=== PATIENT | female | born 1955 | race Caucasian/White ===

== ENCOUNTER → 2016-04-19 | Outpatient (CLI) | payer OTHER ==
--- NOTE | 2016-04-19 10:22 | MA ---
Digital Diagnostic Right Breast Mammogram With Tomosynthesis Clinical Indications: Six- month follow up of probable benign right breast asymmetry. Comparison: Mammograms through March 01, 2007. Technique: Standard cephalocaudal projection is obtained. Digital breast tomosynthesis was performed in the MLO projection with reconstruction at 1.0 mm slice thickness and composite MLO views reconstru cted. This examination is processed by the [employer] computer-aided detection system. Breast density: Type C: The breast tissue is heterogeneously dense, which may obscure small masses. Findings: The previously noted asymmetry is not visible on today's study, suggesting it represented o verlapping fibroglandular tissue. No suspicious masses or calcifications are identified. Heterogeneou sly dense breast parenchyma reduces sensitivity for noncalcified masses. Impression: BI-RADS 2: Benign Findings Recommendation: Screening mammograms in September 2016. Findings and recommendations were given to the patient at the time of the study. [facility] will send a result letter to the patient. Negative mammography should not preclude additional workup of a clinically suspicious finding. The patient's information is entered into a reminder system with a target due date for her next mammo gram.
== END ==
LOC: FIMAGING 09:24
PROVIDERS: ATTEND Internal Medicine
DX: Z12.39 Encounter for other screening for malignant neoplasm of breast (principal); R92.8 Other abnormal and inconclusive findings on diagnostic imaging of breast
CPT/HCPCS: G0206; G0279

== ENCOUNTER → 2016-11-15 | Outpatient (CLI) | payer OTHER | LOC: FIMAGING 08:06 | PROVIDERS: ATTEND Internal Medicine | DX: Z12.31 Encounter for screening mammogram for malignant neoplasm of breast (principal) | CPT/HCPCS: G0202 ==

== ENCOUNTER → 2017-11-23 | Outpatient (CLI) | payer OTHER | DX: Z12.31 Encounter for screening mammogram for malignant neoplasm of breast (principal) ==

== ENCOUNTER 2017-12-07 14:40 | Emergency (ER) | payer OTHER ==
--- NOTE | 2017-12-07 15:52 | EDPHY ---
General Time Seen by Provider: 12/07/17 15:45 Narrative: CHIEF COMPLAINT: Right finger injury HISTORY OF PRESENT ILLNESS: Patient presents with complains of injury to the right finger last night while trying to take her paddle board off her car. She states that she was removing her paddle board from the top her car when she bent her finger awkwardly. This involves the right middle finger only. It was minimally painful last night. This morning it is more painful and swollen. She reports full use of the finger but painful when doing so. No numbness, tingling or weakness. No laceration or puncture. No injury to the ipsilateral hand, wrist or elbow. Minimal pain at rest. No other associated complaints or modifying factors DOMINANT EXTREMITY: Right-hand dominant ESTABLISHED ORTHOPEDIST: None REVIEW OF SYSTEMS: Ten systems reviewed and are negative unless otherwise noted in the HPI PAST MEDICAL HISTORY: Dyslipidemia, hypertension, depression PAST SURGICAL HISTORY: No recent surgeries SOCIAL HISTORY: Nonsmoker FAMILY HISTORY: Noncontributory EXAMINATION: General Appearance: Alert, no distress Cardiovascular: Symmetric radial pulses 2+. There is brisk cap refill in the fingers of the right hand. Neurological: A&O, 2 point sensory symmetric, interossei strength symmetric Skin: Warm and dry, no rash. No laceration or puncture. No cyanosis or pallor. Extremities: Mild tenderness of the right middle finger involving the PIP joint. There is mild edema. Full range of motion including superficialis and profundus flexors. No evidence of tenosynovitis. Compartments are soft in the right upper extremity. Psychiatric: Mood and affect normal DIFFERENTIAL DIAGNOSES: Including but not limited to sprain, strain, dislocation, subluxation, fracture MDM: 3:45 p.m. Acute injury to the right middle finger last night with swelling and pain over the proximal interphalangeal joint and at the base of the right middle finger. There is no pain anywhere other than middle finger. Her exam does reveal some tenderness and swelling over the PIP joint. There is no evidence of septic joint, tenosynovitis, dislocation, laceration or puncture. X-ray as read by me , without radiologist, reveals no bony abnormalities other than chronic changes. I discussed janet-taped with [place] finger splint. I discussed hand referral. We discussed ice, elevation anti-inflammatories. We discussed ED precautions. She is comfortable this plan. Discharged home stable condition. SUPERVISION: This patient was independently evaluated without direct involvement of or examination by the attending physician. - History Smoking Status: Never smoked - Objective Vital Signs: Initial Vital Signs Temperature (C) 97.9 F 12/07/17 14:42 Heart Rate 89 12/07/17 14:42 Respiratory Rate 18 12/07/17 14:42 Blood Pressure 152/109 H 12/07/17 14:42 O2 Sat (%) 93 12/07/17 14:42 O2 Delivery Mode Room Air Allergies/Adverse Reactions: NSAIDS (Non-Steroidal Anti-Inflamma [Nsaids] Allergy (Intermediate, Verified 11/16 14:41) WHOLE BODY RASH, MOUTH RASH Home Medications: Medication Instructions Recorded Calcium Carb W/Vit D [Calcium Carb 1,000 mg PO HS 10/16/12 W/Vit D 500/200 (OTC)] Escitalopram Oxalate [Lexapro 10 10 mg PO DAILY 10/16/12 MG (RX)] Multivitamins [Tab-A-Pradip] 1 each PO HS 10/16/12 [place]-3 Fatty Acids [Fish Oil 1000 2,000 mg PO BID 10/16/12 mg (OTC)] Zolpidem Tartrate [Ambien 10 mg] 10 mg PO HS 10/16/12 *Pharmacy Completed 10/29/12 10/29/12 Aspirin EC [Aspirin EC 81 mg (OTC)] 81 mg PO HS 10/29/12 Cyanocobalamin [Vitamin B12 1000 1,000 mcg PO BID 10/29/12 MCG (OTC)] Reconciled 11-14-12 11/14/12 Atorvastatin Calcium 12/07/17 [id number] 12/07/17 Departure - Departure Disposition: Home, Routine, Self-Care Clinical Impression: Sprain of right middle finger Qualifiers: Encounter type: initial encounter Sprain of finger site: interphalangeal joint Qualified Code(s): S63.632A - Sprain of interphalangeal joint of right middle finger, initial encounter Condition: Good Instructions: Finger Sprain (ED) Additional Instructions: 1. Finger splint as provided until seen by hand surgeon unless 100% pain free 2. Rest, ice and elevation often 3. Ibuprofen [id number], 400 mg every 6-8 hours as needed for pain 4. Contact hand surgeon for definitive care 5. ED precautions for any worsening pain, redness, warmth, difficulty straightening bending the finger Referrals: Nelli Vaz MD [Primary Care Provider] - As per Instructions Emil Randolph MD [Medical Doctor] - As per Instructions
[2017-12-07 15:59] VITALS: BP 125/84
== END 2017-12-07 15:58 | disposition home or self-care (01) ==
DX: S63.632A Sprain of interphalangeal joint of right middle finger, initial encounter (principal); X50.0XXA Overexertion from strenuous movement or load, initial encounter; Y92.810 Car as the place of occurrence of the external cause; Y99.8 Other external cause status
CPT/HCPCS: L3925

== ENCOUNTER 2018-05-28 08:52 | Day surgery (SDC) | payer OTHER ==
[2018-05-28] MEDS ORDERED: FAMOTIDINE 20 MG TAB PO ONE (08:59)
[2018-05-28] MEDS ORDERED: diphenhydrAMINE 25 MG CAP PO ONE ×2 (08:59→09:10)
[2018-05-28] MEDS ORDERED: DIAZEPAM 5 MG TAB PO ONE (08:59)
[2018-05-28] MEDS ORDERED: ASPIRIN EC 325 MG TAB PO ONE ×2 (08:59→09:10)
[2018-05-28] MEDS ORDERED: NS 1,000 ML IV ONE (08:59)
[2018-05-28] MEDS ORDERED: FAMOTIDINE 20 MG TAB ONE (09:10)
[2018-05-28] MEDS ORDERED: DIAZEPAM 5 MG TAB ONE (09:10)
[2018-05-28 09:28] LABS: PLATELET COUNT 279 10^3/uL (150-400)
[2018-05-28 09:45] LABS: INR 0.87 (0.83-1.16); PROTIME(PATIENT) 12.1 SEC (12.0-15.0)
--- NOTE | 2018-05-28 11:35 | PDPROPOC ---
Sedation Plan of Care Sedation Plan of Care: vital signs stable, mental status noted, patient educated of risks, benefits, alternatives, patient can tolerate sedation ASA Classification: ASA 2 Planned drugs: fentanyl, midazolam Mallampati Score: Class 2 Mallampati Reference Image: Patient passed 3-3-2 rule?: Yes
--- NOTE | 2018-05-28 11:36 | PDHPUP ---
History & Physical Update H&P update statement: This history and physical update is based on an assessment of the patient which was completed after admission or registration (within 24 hours), but prior to the surgery/procedure. 62 F with new onset of exertional symptoms, abnormal ETT and multiple CAD risk factors who presents for [facility]. Risks and benefits discussed. No contraindication to DAPT. H&P update: H&P reviewed & patient examined, no change in patient's condition since H&P completed
[2018-05-28] MEDS ORDERED: MIDAZOLAM 2 MG/2 ML VIAL ONE (12:41)
[2018-05-28] MEDS ORDERED: LIDOCAINE 1% 300 MG/30 ML SDV ONE (12:41)
[2018-05-28] MEDS ORDERED: fentaNYL 100 MCG/2 ML INJ ONE (12:41)
[2018-05-28] MEDS ORDERED: IOPAMIDOL (ISOVUE-370) 150 ML BTL IV ONE (12:42)
[2018-05-28] MEDS ORDERED: NITROGLYCERIN 0.4 MG BTL SL PRN (13:48)
[2018-05-28] MEDS ORDERED: ATROPINE SULFATE 1 MG/10 ML SYR IVP PRN (13:48)
[2018-05-28] MEDS ORDERED: OXYCODONE/APAP 5/325 TAB PO PRN (13:48)
[2018-05-28] MEDS ORDERED: HYDROCODONE/APAP 5/325 TAB PO PRN (13:48)
[2018-05-28] MEDS ORDERED: ONDANSETRON 4 MG/2 ML VIAL IVP PRN (13:48)
--- NOTE | 2018-05-28 13:48 | PDDXCAT ---
Diagnostic Cath Note - . Date: 05/28/18 Mounter Clarinets: Keena Indication: other (New onset exertional angina. Abnormal stress test, moderate risk.) - Procedure Access: right groin Procedure: left heart catheterization, coronary angiography, left ventriculogram - Materials Left Heart Cath size: 6F Left Heart Cath materials: standard multipack (JL4, JR4, pigtail) - Findings-Left Heart Catheterization LM: Normal and bifurcates into the LAD and left circumflex. LAD: Lad is a large vessel reaching the apex. There are 2 principal diagonals. The LAD and its branches are free of coronary disease. LCX: The left circumflex is normal and has 2 obtuse marginals. The 1st is large with a sub branch. There is no significant disease in the LCx or its branches RCA: Dominant vessel. No coronary disease. There is a very prominent left atrial branch coming off the distal portion of the RCA. EDP: 16 LVEF: Normal Wall motion: 65% - Findings-Right Heart Catheterization AO: 132/66. There is no aortic stenosis. Complications: none Estimated blood loss: <50ml Closure method: Angioseal Assessment: Normal epicardial coronary arteries. Normal LV systolic function and left heart filling pressures. Plan: Evaluate for noncardiac chest pain. Continue cardiac risk factor modification. Patient Problems: Problems Problem Status Onset Osteoarthritis of hip Active Sprain of right middle finger Acute
== END 2018-05-28 17:30 | disposition home or self-care (01) ==
LOC: FCATH 08:52
PROVIDERS: ATTEND Internal Medicine Cardiovascular Disease
PROC: B2111ZZ Fluoroscopy of Multiple Coronary Arteries using Low Osmolar Contrast (ICD-10-PCS; principal; 2018-05-28)
PROC: B2151ZZ Fluoroscopy of Left Heart using Low Osmolar Contrast (ICD-10-PCS; principal; 2018-05-28)
PROC: 4A023N7 Measurement of Cardiac Sampling and Pressure, Left Heart, Percutaneous Approach (ICD-10-PCS; principal; 2018-05-28)
DX: R07.89 Other chest pain (principal); R06.00 Dyspnea, unspecified; I10 Essential (primary) hypertension; E78.5 Hyperlipidemia, unspecified; Z87.891 Personal history of nicotine dependence; F32.9 Major depressive disorder, single episode, unspecified; Z96.643 Presence of artificial hip joint, bilateral
CPT/HCPCS: C1760; J1644; J2250; J3010; Q9967